=== PATIENT | female | born 1980 | race Caucasian/White ===

== ENCOUNTER 2023-07-12 09:07 | Outpatient (CLI) | payer OTHER, SELFPAY ==
--- NOTE | ~2023-07-12 | US_ITS ---
US breast LT complete DATE: 07/12/2023 10:43 INDICATION: Mastodynia TECHNIQUE: High-resolution ultrasound imaging and color flow imaging of complete left breast includin g all 4 quadrants and subareolar area COMPARISON: Recent mammogram performed at an outside institution has been requested for comparison. FINDINGS: 12:00 2 cm from nipple: Parallel circumscribed oval hypoechoic solid lesion measuring approximately 6 x 11 mm, with through transmission posterior enhancement, likely benign, probably a benign fibroaden jana 6:00 3 cm from nipple: Smaller parallel circumscribed hypoechoic oval lesion measuring 2 x 4 mm, with out shadowing, likely benign, with a small fibroadenoma. No suspicious mass or shadowing of the left breast is detected. 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 Reviewed, dictated and finalized at [facility].
[2023-07-12 10:33] LABS: Thyroid Stimulating Hormone 0.684 uIU/mL (0.465-4.680)
[2023-07-23 23:42] LABS: Estradiol, Ultrasensitive 143 pg/mL
== END 2023-07-12 09:08 | disposition home or self-care (01) ==
LOC: ANHIMG 09:08
PROVIDERS: PCP Student in an Organized Health Care Education/Training Program; Visit Provider Student in an Organized Health Care Education/Training Program
DX: N64.4 Mastodynia (principal); R61 Generalized hyperhidrosis; R92.2 Inconclusive mammogram
CPT/HCPCS: 36415; 76641; 82670; 83001; 84443

== ENCOUNTER 2023-12-09 12:12 | Outpatient (CLI) | payer OTHER, SELFPAY ==
--- NOTE | ~2023-12-09 | MMUS_ITS ---
EXAMINATION: MM diagnostic kwasi BI w diana, US breast BI complete HISTORY: TECHNIQUE: Additional 3-D tomosynthesis images of were performed and synthetic 2-D images were genera jason. CAD analysis was submitted and interpreted. High resolution breast ultrasound was performed. COMPARISON: 07/12/2023 complete left breast ultrasound 04/05/2023 diagnostic right mammogram and right breast ultrasound 03/20/2023 bilateral mammogram BREAST PARENCHYMAL COMPOSITION: The breasts are extremely dense, which lowers the sensitivity of mamm ography. FINDINGS: MAMMOGRAPHIC FINDINGS: No suspicious mass or architectural distortion, malignant calcification, skin thickening or retractio n or significant new or developing density is detected. ULTRASOUND: No suspicious mass or shadowing of either breast is detected. IMPRESSION: 1. No mammographic or sonographic evidence of malignancy 2. Routine annual mammographic screening is recommended BI-RADS Category 1: Negative Reviewed, dictated and finalized at [facility]. IMPRESSION: 1. No mammographic or sonographic evidence of malignancy 2. Routine annual mammographic screening is recommended BI-RADS Category 1: Negative
== END 2023-12-09 12:13 | disposition home or self-care (01) ==
LOC: ANHIMG 12:15
PROVIDERS: PCP Student in an Organized Health Care Education/Training Program; Visit Provider Student in an Organized Health Care Education/Training Program
DX: N60.19 Diffuse cystic mastopathy of unspecified breast (principal)
CPT/HCPCS: 76641; 77062; 77066; G0279